=== PATIENT | male | born 1960 | race Caucasian/White ===

== ENCOUNTER → 2021-05-28 | Outpatient (CLI) | payer MEDICARE, OTHER | LOC: CT 07:10 | DX: C22.8 Malignant neoplasm of liver, primary, unspecified as to type (principal); C76.1 Malignant neoplasm of thorax | CPT/HCPCS: Q9967 ==

== ENCOUNTER → 2021-09-25 | Outpatient (CLI) | payer MEDICARE, OTHER | LOC: CT 10:00 | DX: C22.9 Malignant neoplasm of liver, not specified as primary or secondary (principal); C80.1 Malignant (primary) neoplasm, unspecified; R91.8 Other nonspecific abnormal finding of lung field; C79.89 Secondary malignant neoplasm of other specified sites | CPT/HCPCS: 71260; Q9967 ==